=== PATIENT | female | born 1970 | race Caucasian/White ===

== ENCOUNTER 2020-06-14 16:01 | Emergency (ER) | payer MEDICAID ==
[~2020-06-14] VITALS: Ht 162.6 cm; Wt 67.3 kg
[2020-06-14] MEDS ORDERED: aspirin 81mg tab.chew PO ONE (16:25)
[2020-06-14 16:31] LABS: BASOPHILS # (AUTO) 0.1 X10'3 (0-0.2); BASOPHILS % (AUTO) 0.8 % (0-1); EOSINOPHILS # (AUTO) 0.1 X10'3 (0-0.9); EOSINOPHILS % (AUTO) 1.6 % (0-6); HEMATOCRIT 36.7 % (35.0-45.0); HEMOGLOBIN 12.6 g/dl (12.0-16.0); LYMPHOCYTES # (AUTO) 1.9 X10'3 (1.1-4.8); LYMPHOCYTES % (AUTO) 27.6 % (21-51); MEAN CORPUSCULAR HEMOGLOBIN 32.8 PG (27.0-31.0); MEAN CORPUSCULAR HGB CONC 34.5 g/dL (33.0-36.5); MEAN CORPUSCULAR VOLUME 95.2 FL (78-98); MEAN PLATELET VOLUME 7.7 FL (7.4-10.4); MONOCYTES # (AUTO) 0.5 X10'3 (0-0.9); NEUTROPHILS # (AUTO) 4.4 X10'3 (1.8-7.7); PLATELET COUNT 283 X10'3 (140-440); RED BLOOD COUNT 3.85 X10'6 (4.20-5.60); RED CELL DISTRIBUTION WIDTH 13.4 % (11.5-14.5); WHITE BLOOD COUNT 6.9 X10'3 (4.5-11.0)
[2020-06-14] MEDS ORDERED: CODEINE (16:31)
[2020-06-14] MEDS ORDERED: HYDR-2514 (16:31)
[2020-06-14] MEDS ORDERED: [UNRECOGNIZED DRUG - CODE] (16:31)
[2020-06-14] MEDS ORDERED: [UNRECOGNIZED DRUG - OTHER] (16:31)
[2020-06-14] MEDS ORDERED: PENICILLIN (16:31)
[2020-06-14 16:39] LABS: ALANINE AMINOTRANSFERASE 17 U/L (12-78); ALBUMIN 3.3 G/DL (3.4-5.0); ALKALINE PHOSPHATASE 78 IU/L (46-116); ANION GAP 4 (8-16); ASPARTATE AMINO TRANSFERASE 21 U/L (10-37); BILIRUBIN,TOTAL 0.5 MG/DL (0.1-1.0); BLOOD UREA NITROGEN 13 MG/DL (7-18); BUN/CREATININE RATIO 12.1 (6.6-38.0); CALCIUM 8.4 MG/DL (8.5-10.1); CHLORIDE 106 MMOL/L (99-107); CREATININE 1.07 MG/DL (0.40-0.90); GLUCOSE 94 MG/DL (70-104); POTASSIUM 3.7 MMOL/L (3.5-5.1); SODIUM 139 MMOL/L (135-145); TOTAL CARBON DIOXIDE 28.6 MMOL/L (24-32); TOTAL PROTEIN 6.6 G/DL (6.4-8.2); eGFR 55 ML/MIN
[2020-06-14 16:46] LABS: MAGNESIUM 1.9 MG/DL (1.5-2.4)
[2020-06-14 19:44] VITALS: BP 119/77
== END 2020-06-14 19:46 | disposition home or self-care (01) ==
LOC: ER 16:03
DX: I49.9 Cardiac arrhythmia, unspecified (principal); R07.89 Other chest pain; Z85.038 Personal history of other malignant neoplasm of large intestine; Z72.89 Other problems related to lifestyle; Z88.5 Allergy status to narcotic agent; Z88.6 Allergy status to analgesic agent; Z88.8 Allergy status to other drugs, medicaments and biological substances
CPT/HCPCS: 36415; 71045; 80053; 83735; 83880; 84484; 85025; 93005; 99285

== ENCOUNTER 2022-11-14 20:23 | Emergency (ER) | payer OTHER, MEDICAID ==
[~2022-11-14] VITALS: Ht 162.6 cm; Wt 67.7 kg
[~2022-11-14 20:23] MED LIST: CODEINE; HYDR-2514; PENICILLIN; [UNRECOGNIZED DRUG - CODE]; [UNRECOGNIZED DRUG - OTHER]
[2022-11-14 20:41] LABS: BASOPHILS # (AUTO) 0.1 X10'3 (0-0.2); BASOPHILS % (AUTO) 0.8 % (0-1); EOSINOPHILS # (AUTO) 0.3 X10'3 (0-0.9); EOSINOPHILS % (AUTO) 4.3 % (0-6); HEMOGLOBIN 14.9 g/dl (12.0-16.0); LYMPHOCYTES # (AUTO) 2.1 X10'3 (1.1-4.8); MEAN CORPUSCULAR HEMOGLOBIN 31.6 PG (27.0-31.0); MEAN CORPUSCULAR HGB CONC 33.8 g/dL (33.0-36.5); MEAN CORPUSCULAR VOLUME 93.4 FL (78-98); MEAN PLATELET VOLUME 7.5 FL (7.4-10.4); MONOCYTES # (AUTO) 0.4 X10'3 (0-0.9); MONOCYTES % (AUTO) 5.4 % (2-12); NEUTROPHILS # (AUTO) 4.7 X10'3 (1.8-7.7); NEUTROPHILS % (AUTO) 61.5 % (42-75); PLATELET COUNT 281 X10'3 (140-440); RED BLOOD COUNT 4.71 X10'6 (4.20-5.60); RED CELL DISTRIBUTION WIDTH 13.2 % (11.5-14.5); WHITE BLOOD COUNT 7.6 X10'3 (4.5-11.0)
[2022-11-14 21:03] LABS: ALANINE AMINOTRANSFERASE 32 U/L (12-78); ALBUMIN 4.1 G/DL (3.4-5.0); ALBUMIN/GLOBULIN RATIO 1.1 (1.1-1.5); ALKALINE PHOSPHATASE 105 IU/L (46-116); ANION GAP 8 (8-16); ASPARTATE AMINO TRANSFERASE 35 U/L (10-37); BILIRUBIN,TOTAL 0.6 MG/DL (0.1-1.0); BLOOD UREA NITROGEN 14 MG/DL (7-18); BUN/CREATININE RATIO 16.3 (6.6-38.0); CALCIUM 9.7 MG/DL (8.5-10.1); CHLORIDE 103 MMOL/L (99-107); CREATININE 0.86 MG/DL (0.40-0.90); GLUCOSE 109 MG/DL (70-104); MAGNESIUM 1.8 MG/DL (1.5-2.4); POTASSIUM 3.9 MMOL/L (3.5-5.1); SODIUM 139 MMOL/L (135-145); TOTAL CARBON DIOXIDE 27.8 MMOL/L (24-32); TOTAL PROTEIN 7.9 G/DL (6.4-8.2); eGFR 70 ML/MIN
[2022-11-15 00:31] VITALS: BP 112/72
== END 2022-11-15 05:07 | disposition left against medical advice (07) ==
LOC: ER 20:25
DX: R07.9 Chest pain, unspecified (principal); Z53.21 Procedure and treatment not carried out due to patient leaving prior to being seen by health care provider
CPT/HCPCS: 36415; 71045; 80053; 83735; 83880; 84484; 85025; 93005; 99281

== ENCOUNTER 2023-03-29 13:02 | Day surgery (SDC) | payer OTHER, MEDICAID ==
[2023-03-28 09:21] LABS: BASOPHILS % (AUTO) 0.4 % (0-1); EOSINOPHILS % (AUTO) 0.3 % (0-6); HEMATOCRIT 39.5 % (35.0-45.0); HEMOGLOBIN 13.3 g/dl (12.0-16.0); LYMPHOCYTES # (AUTO) 2.3 X10'3 (1.1-4.8); LYMPHOCYTES % (AUTO) 23.5 % (21-51); MEAN CORPUSCULAR HEMOGLOBIN 31.4 PG (27.0-31.0); MEAN CORPUSCULAR HGB CONC 33.6 g/dL (33.0-36.5); MEAN CORPUSCULAR VOLUME 93.4 FL (78-98); MEAN PLATELET VOLUME 7.9 FL (7.4-10.4); MONOCYTES # (AUTO) 0.8 X10'3 (0-0.9); MONOCYTES % (AUTO) 7.7 % (2-12); NEUTROPHILS # (AUTO) 6.7 X10'3 (1.8-7.7); NEUTROPHILS % (AUTO) 68.1 % (42-75); PLATELET COUNT 308 X10'3 (140-440); RED BLOOD COUNT 4.23 X10'6 (4.20-5.60); WHITE BLOOD COUNT 9.8 X10'3 (4.5-11.0)
[2023-03-28 09:34] LABS: APTT 27 SECONDS (22-32)
[2023-03-28 09:42] LABS: ALBUMIN 3.7 G/DL (3.4-5.0); ANION GAP 11 (8-16); BLOOD UREA NITROGEN 19 MG/DL (7-18); BUN/CREATININE RATIO 21.6 (10.0-20.0); CALCIUM 9.4 MG/DL (8.5-10.1); CHLORIDE 106 MMOL/L (99-107); CREATININE 0.88 MG/DL (0.40-0.90); GLUCOSE 88 MG/DL (70-104); POTASSIUM 3.7 MMOL/L (3.5-5.1); SODIUM 142 MMOL/L (135-145); TOTAL CARBON DIOXIDE 25.3 MMOL/L (24-32); eGFR 68 ML/MIN
[2023-03-29] VITALS (9 sets, daily range): BP systolic 98–105; BP diastolic 50–62; PULSE 52–72; RESP 10–22; TEMP 98.4; O2SAT 94–97
[~2023-03-29] VITALS: Ht 162.6 cm; Wt 74.0 kg
[2023-03-29] MEDS ORDERED: normal saline 1000ml 1,000 ML IV SCH (13:35)
[2023-03-29] MEDS ORDERED: PRE5T PO (13:44)
[2023-03-29] MEDS ORDERED: SENN-263 PO (13:44)
[2023-03-29] MEDS ORDERED: midazolam 1 mg/ML 2ml injection ONE ×2 (14:46→15:00)
[2023-03-29] MEDS ORDERED: fentaNYL/PF 50MCG/1 ML 2ML syringe ONE (14:46)
[2023-03-29] MEDS ORDERED: LIDOcaine 1% W/epiNEPHrine 1:100,000 20ml vial ONE (14:47)
[2023-03-29] MEDS ORDERED: ceFAZolin 1000mg inj ONE (14:48)
[2023-03-29] MEDS ORDERED: diphenhydrAMINE 50 mg/ml inj ONE (15:01)
[2023-03-29] MEDS ORDERED: HYDROmorphone 1 mg/ml syringe ONE ×2 (15:01→15:22)
[2023-03-29] MEDS ORDERED: clindamycin-Cleocin 900mg/D5W 50 ML IV ONE (15:03)
== END 2023-03-29 18:35 | disposition home or self-care (01) ==
LOC: SSTAY O 13:02
PROVIDERS: ATTEND Student in an Organized Health Care Education/Training Program
DX: I44.30 Unspecified atrioventricular block (principal); R00.1 Bradycardia, unspecified; F32.A Depression, unspecified; G47.00 Insomnia, unspecified; G43.909 Migraine, unspecified, not intractable, without status migrainosus; G89.29 Other chronic pain; F17.290 Nicotine dependence, other tobacco product, uncomplicated; Z90.49 Acquired absence of other specified parts of digestive tract; Z85.038 Personal history of other malignant neoplasm of large intestine; Z88.8 Allergy status to other drugs, medicaments and biological substances; Z88.4 Allergy status to anesthetic agent; Z88.1 Allergy status to other antibiotic agents; Z91.041 Radiographic dye allergy status; Z88.5 Allergy status to narcotic agent; Z88.0 Allergy status to penicillin; Z91.013 Allergy to seafood; Z79.899 Other long term (current) drug therapy; Z79.01 Long term (current) use of anticoagulants
CPT/HCPCS: 33208; 36415; 80048; 85025; 85610; 85730; 93005; 99152; 99153; C1785; C1898; J1170; J1200; J2250; J3490; J7030; J0690; J3010

== ENCOUNTER 2025-08-17 10:43 | Emergency (ER) | payer MEDICAID, OTHER ==
[~2025-08-17] VITALS: Ht 162.6 cm; Wt 60.6 kg
[~2025-08-17 10:43] MED LIST changes: -CODEINE; -HYDR-2514; -PENICILLIN; +PRE5T PO; +SENN-360 PO; -[UNRECOGNIZED DRUG - CODE]; -[UNRECOGNIZED DRUG - OTHER]
[2025-08-17 10:55] VITALS: TEMP 97.3
--- NOTE | 2025-08-17 11:19 | ELECTROCARDIOGRAPH REPORT ---
[facility] Test Date: 2025-08-17 Test Time: 10:49:05 Pat Name: DUC GONSALEZ Department: EMERGENCY ROOM [id number] Room: Gender: F Employee Development Specialist: JIM : 1970 Requested By: RADHA SIDHU Order Number: [id number] Reading MD: Dr. GIA De Santiago Measurements Intervals [place] Rate: 63 P: 30 NC: 147 QRS: 57 QRSD: 77 T: 58 QT: 407 QTc: 417 Interpretive Statements Sinus rhythm Low voltage, precordial leads Baseline wander in lead(s) V1,V2 Electronically Signed On 08-18-2025 13:52:[address] GIA De Santiago Please click the below link to view image of tracing.
--- NOTE | 2025-08-17 11:47 | RADIOLOGY REPORT ---
CHEST RADIOGRAPH INDICATION: CP TECHNIQUE: Single frontal view of the chest was obtained COMPARISON: CHEST,SINGLE VIEW on DOS: 11/14/22 FINDINGS: Lines and Tubes: Pacemaker/ AICD in the left upper chest with multiple cardiac leads. Lungs: Clear Pleura: No effusion. No pneumothorax. Cardiomediastinal contours: Unremarkable Bones: Unremarkable IMPRESSION: 1. No radiographic evidence of acute cardiopulmonary abnormality.
[2025-08-17 11:53] LABS: MEAN PLATELET VOLUME 7.9 FL (7.4-10.4); RED CELL DISTRIBUTION WIDTH 13.9 % (11.5-14.5)
[2025-08-17 12:13] LABS: CREATININE 0.89 MG/DL (0.40-0.90); PRO BRAIN NATRIURETIC PEPTIDE 94 PG/ML (0-125); TOTAL CARBON DIOXIDE 26.3 MMOL/L (24-32); eCRCL 62 ML/MIN; eGFR 66 ML/MIN
--- NOTE | 2025-08-17 12:39 | Physician Documentation ---
History of Present Illness ~ General Chief Complaint: Shortness of Breath Stated Complaint: R ARM PAIN/SOB Time Seen by MD: 12:10 Source: patient (7) Mode of Arrival: POV History of Present Illness Initial Comments Patient comes in for evaluation of right-sided arm pain. She works as a snack bar cashier at [employer], reports that last night she began to have some tightness at rest which she is initially felt just above the right elbow, but it resolved last night. It came on again today while she was at work, 1st around the elbow and then tightness and aching pain down her forearm to her hand and fingers. She reports some tingling in his to all of her fingers as well. The pain also radiated up her arm to the shoulder blade in the right trapezius area. No neck or back midline pain. This has continued since 9:00 a.m. this morning when it began. Patient also reports she has had a cough for about a month, intermittently productive. She has had intermittent fevers as well for the last month, but not for the last week or so. Patient does report some midsternal chest pain when she coughs. Medication Reconciliation Allergies: Coded Allergies: fentanyl (Verified Allergy, Severe, anaphylaxis, 08/17/25) Penicillins (Verified Allergy, Unknown, 08/17/25) acetaminophen (Verified Allergy, Unknown, 06/14/20) codeine (Verified Allergy, Unknown, 08/17/25) hydrocodone (Verified Allergy, Unknown, 08/17/25) meperidine (Verified Allergy, Unknown, 08/17/25) vancomycin (Verified Allergy, Unknown, 03/29/23) Scheduled Prednisone (predniSONE tablet), 20 MG PO DAILY, (Reported) Sennosides (Senna), 1 TAB PO DAILY, (Reported) Past Medical History Past Medical History: Arrhythmia (Bradycardia requiring pacemaker), Colon Cancer Past Surgical History: cancer surgery, pacemaker Smoking Status: Light Tobacco User (Vapes from time to time) Alcohol Use: None Drug Use: none Review of Systems All Other Systems at this time: Reviewed and Negative Physical Exam Physical Exam Vital Signs: Temperature: 97.3, Source: Temporal, Heart Rate: 60, Respiratory Rate: 15, BP: 116/68, Pulse Oximetry: 98, Weight: 60.600 Oxygen Flow Rate: 0 Physical Exam General: Pt is awake, alert, oriented x4 in no acute distress and well appearing. Occasional deep cough. Head: Normocephalic and atraumatic. Eyes: Conjunctiva normal. ENT: Mucous membranes moist. Neck: Completely supple. Tender along the right sternocleidomastoid and the right trapezius muscle from the base of the skull out to the shoulder and down around her right scapula. No posterior midline tenderness. Chest: Clear to auscultation bilaterally, without rales, rhonchi, or wheezes. There is no accessory muscle use or retractions. Occasional cough. Cardiac: Regular rate and rhythm without murmurs, gallops or rubs. Palpation over the sternum reproduces her pain, which she mostly has when she coughs. Abd: Soft, nondistended, nontender, with normoactive bowel sounds. No guarding or rebound. Extremities: Patient has tenderness in the flexor and extensor muscles of the forearm, the biceps and triceps, the deltoid and the trapezius. Motor strength is intact to the median/radial/ulnar nerve distribution, and she has a strong radial pulse with good capillary refill time to the fingers. She does report some subjective numbness and tingling in all of her fingertips. Skin: [place], warm and dry with no significant rash appreciated. Neuro: Cranial nerves II-XII grossly intact. The gait is normal. Progress Results/Orders Results/Orders Orders - RADHA SIDHU MD Chest,Single View (08/17/25 11:00) Monitor (08/17/25 11:00) Saline Lock (08/17/25 11:00) Oxygen (08/17/25 11:00) Hs Troponin I W Calculations (08/17/25 13:00) Hs Troponin I W Calculations (08/17/25 14:00) Ketorolac Trometh 15mg/Ml Vial (Toradol (08/17/25 12:30) Completed Orders - RADHA SIDHU MD Chest,Single View (08/17/25 11:00) Cbc/Diff (08/17/25 11:00) BMP (08/17/25 11:00) PBNP (08/17/25 11:00) Electrocardiogram (08/17/25 11:00) Hs Troponin I W Calculations (08/17/25 11:00) Vital Signs 08/17/25 08/17/25 10:55 11:47 Temp 97.3 Pulse 63 60 Resp 18 15 B/P (MAP) 119/76 116/68 (84) Pulse Ox 99 98 O2 Flow Rate 0 0 Laboratory Tests Test 08/17/25 11:43 White Blood Count 6.5 Red Blood Count 4.38 Hemoglobin 13.6 Hematocrit 40.4 Mean Corpuscular Volume 92.4 Mean Corpuscular Hemoglobin 31.0 Mean Corpuscular Hemoglobin Concent 33.6 Red Cell Distribution Width 13.9 Platelet Count 279 Mean Platelet Volume 7.9 Neutrophils (%) (Auto) 49.6 Lymphocytes (%) (Auto) 37.4 Monocytes (%) (Auto) 8.8 Eosinophils (%) (Auto) 3.5 Basophils (%) (Auto) 0.7 Neutrophils # (Auto) 3.2 Lymphocytes # (Auto) 2.4 Monocytes # (Auto) 0.6 Eosinophils # (Auto) 0.2 Basophils # (Auto) 0.0 CBC Comment Sodium Level 142 Potassium Level 3.8 Chloride Level 109 H Carbon Dioxide Level 26.3 Anion Gap 7 L Blood Urea Nitrogen 15 Creatinine 0.89 Estimated GFR/1.73 m2 66 BUN/Creatinine Ratio 16.9 Glucose Level 82 Calcium Level 9.5 Troponin I High Sensitivity < 4 L Troponin I High Sens Percent Delta Troponin I Hi Sens Absolute Change Pro-B-Type Natriuretic Peptide 94 Albumin 3.9 Chemistry Comments Medical Decision Making Additional information obtaine: N/A Findings Differential Diagnosis Patient presenting with right arm discomfort. There is no evidence for vascular compromise. 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 She has some subjective tingling to her fingertips throughout, can not necessarily pinpoint it to the median nerve distribution, although there may be some element of carpal tunnel at play here as well. No lancinating pain and I doubt a nerve impingement at the neck. Laboratory workup was performed including troponin to make sure that this was not an abnormal presentation of cardiac ischemia; it appears within normal limits. Chest x-ray performed because of the patient's history of cough severe enough to cause her anterior chest wall pain; this is also normal with no evidence for pneumonia and no cardiac abnormalities. Patient was reassured and given pain medication. She is advised to follow up with her regular clinic for further outpatient management. Patient might require testing for carpal tunnel, might require a C-spine MRI, but this is not urgent and we do not have MRI available at our facility today. She is going to continue to use anti-inflammatories at home, understands to return immediately to the emergency department if she has any new or worsening symptoms or other concerns. Departure Time of Disposition: 12:43 Disposition: 01 HOME / SELF CARE / HOMELESS Impression: Primary Impression: Upper extremity pain Qualified Codes: M79.601 - Pain in right arm Additional Impressions: Chronic cough Chest wall pain Condition: Stable Discharge Instructions: General Assault Additional Instructions: Laboratory workup, chest x-ray, and cardiac tests are within normal limits. I suspect a musculoskeletal cause of your right arm pain, possibly related to overuse at work. You will need further outpatient workup through your clinic, including possibly for carpal tunnel syndrome. Nerve impingement at the neck is also a possibility, although less likely; this will require outpatient evaluation as well. You should continue to take anti-inflammatory medication, ibuprofen 600 mg 4 times per day we will work well if tolerated. An Robinson wrap over the elbow joint should help give some support. Return immediately to the emergency department if you develop any new or worsening symptoms or any other concerns. Referrals: NO PRIMARY CARE PROVIDER (PCP) Education Educated: Patient Educated regarding: diagnosis, treatment Signature Scribe Signature: Attestation: RADHA SIDHU MD Aug 17, 2025 12:39
[2025-08-17] MEDS: ketorolac trometh 15mg/ml vial 15 MG/ML ML IM ONE (12:42)
[2025-08-17 13:08] VITALS: BP 102/70; PULSE 60; RESP 18; O2SAT 100
== END 2025-08-17 13:11 | disposition home or self-care (01) ==
LOC: ER 10:44
DX: M79.601 Pain in right arm (principal); R06.02 Shortness of breath; G89.29 Other chronic pain; R05.9 Cough, unspecified; R07.89 Other chest pain; F17.290 Nicotine dependence, other tobacco product, uncomplicated; Z95.0 Presence of cardiac pacemaker; Z88.8 Allergy status to other drugs, medicaments and biological substances; Z88.0 Allergy status to penicillin; Z88.1 Allergy status to other antibiotic agents; Z88.5 Allergy status to narcotic agent; Z79.899 Other long term (current) drug therapy; Z85.038 Personal history of other malignant neoplasm of large intestine
CPT/HCPCS: 36415; 71045; 80048; 83880; 84484; 85025; 93005; 96372; 99285; J1885; A6449